=== PATIENT | male | born 1995 ===

== ENCOUNTER 2024-01-18 06:57 | Emergency (ER) | payer BC ==
[2024-01-18 07:58] LABS: CORONAVIRUS COVID-19 NAA NEGATIVE (NEGATIVE); INFLUENZA A NAA NEGATIVE (NEGATIVE); INFLUENZA B NAA POSITIVE (NEGATIVE); RESPIRATORY SYNCYTIAL VIR NAA NEGATIVE (NEGATIVE)
== END 2024-01-18 08:20 | disposition home or self-care (01) ==
LOC: LL.ED 06:57
DX: J10.1 Influenza due to other identified influenza virus with other respiratory manifestations (principal); F17.210 Nicotine dependence, cigarettes, uncomplicated
CPT/HCPCS: 0241U; 99283

== ENCOUNTER 2025-03-29 07:47 | Emergency (ER) | payer BC ==
[2025-03-29] MEDS ORDERED: Sodium Chloride 0.9% 10 ML Syringe FLUSH PRN (08:07)
[2025-03-29 08:35] LABS: BASOPHILS ABSOLUTE AUTO 0.05 K/uL (0.00-0.20); BASOPHILS PERCENT AUTO 0.7 % (0.0-2.0); EOSINOPHILS ABSOLUTE AUTO 0.39 K/uL (0.00-0.50); EOSINOPHILS PERCENT AUTO 5.7 % (0.0-5.0); HEMATOCRIT 41.4 % (39.0-49.0); HEMOGLOBIN 13.9 g/dL (13.1-16.8); IMMATURE GRAN ABSOLUTE AUTO 0.01 10^3/uL (0.00-0.04); IMMATURE GRAN PERCENT AUTO 0.1 % (0.0-0.4); LYMPHOCYTES ABSOLUTE AUTO 3.26 K/uL (0.50-3.50); LYMPHOCYTES PERCENT AUTO 47.3 % (10.0-50.0); MEAN CORPUSCULAR HEMOGLOBIN 26.9 pg (28.2-33.3); MEAN CORPUSCULAR HGB CONC 33.6 g/dL (31.7-36.0); MEAN CORPUSCULAR VOLUME 80.2 fL (84.0-98.0); MONOCYTES ABSOLUTE AUTO 0.52 K/uL (0.00-1.00); MONOCYTES PERCENT AUTO 7.5 % (2.0-14.0); NEUTROPHILS ABSOLUTE AUTO 2.66 K/uL (1.40-7.00); NEUTROPHILS PERCENT AUTO 38.7 % (45.0-80.0); PLATELET COUNT,PLT 178 K/uL (150-350); RED BLOOD CELL COUNT 5.16 M/uL (4.33-5.41); WHITE BLOOD CELL COUNT,WBC 6.9 K/uL (4.0-10.2)
[2025-03-29 08:50] LABS: ALANINE AMINOTRANSFERASE,ALT 36 U/L (12-78); ALBUMIN 3.9 g/dL (3.4-5.0); ALKALINE PHOSPHATASE 56 IU/L (46-116); ANION GAP 7.6 meq/L (7-15); ASPARTATE AMNIOTRANSFERASE,AST 18 U/L (15-37); BILIRUBIN TOTAL 0.6 mg/dL (0.2-1.0); BLOOD UREA NITROGEN,BUN 18 mg/dL (7-18); CALCIUM 9.4 mg/dL (8.5-10.1); CARBON DIOXIDE,CO2 29.4 mmol/L (21.0-32.0); CHLORIDE,CL 104 mmol/L (98-107); CREATINE KINASE,CK 306 U/L (26-308); CREATININE 0.86 mg/dL (0.51-1.17); GLUCOSE RANDOM 92 mg/dL (70-99); POTASSIUM,K 3.9 mmol/L (3.5-5.1); SODIUM,NA 141 mmol/L (136-145); TSH ULTRASENSITIVE 2.161 mIU/mL (0.358-3.740)
[2025-03-29 08:53] LABS: ESTIMATED GFR 119 mL/min (>=60)
[2025-03-29 08:54] LABS: INR 1.1 (0.9-1.1); PROTHROMBIN TIME 10.7 SEC (9.0-11.1)
[2025-03-29] MEDS: Aluminum Hydroxide/Magnesium Hydroxide/Simethicone Susp 30 ML Cup PO ONE (09:00)
[2025-03-29] MEDS: Lidocaine 2% Viscous Solution 15 ML UD PO ONE (09:00)
[2025-03-29 09:30] LABS: PTT,PARTIAL THROMBOPLSTIN TIME 26.1 SEC (23.8-34.4)
== END 2025-03-29 10:00 | disposition home or self-care (01) ==
LOC: LL.ED 07:47
DX: K21.9 Gastro-esophageal reflux disease without esophagitis (principal); Z79.899 Other long term (current) drug therapy
CPT/HCPCS: 36415; 71045; 80053; 82550; 84443; 84484; 85025; 85610; 85730; 93005; 99285; A9270-GY